=== PATIENT | male | born 2000 | race Caucasian/White ===

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

== ENCOUNTER 2019-01-10 19:57 | Emergency (ER) | payer MEDICAID | END 2019-01-10 21:00 | disposition home or self-care (01) | LOC: CED 19:57 ==

== ENCOUNTER 2019-01-11 21:44 | Emergency (ER) | payer MEDICAID | END 2019-01-11 22:31 | disposition home or self-care (01) | LOC: CED 21:44 ==